=== PATIENT | female | born 1940 | race Asian ===

== ENCOUNTER → 2019-01-04 | Outpatient (CLI) | payer MEDICARE, OTHER ==
[~2019-01-04] MED LIST: ALEN70TA3 PO; CALC1TAB2 PO; IBAN150T15 PO
== END | disposition home or self-care (01) ==
LOC: CVU 08:36
PROVIDERS: ATTEND Nurse Practitioner Family
DX: E04.2 Nontoxic multinodular goiter (principal); I35.8 Other nonrheumatic aortic valve disorders; I37.1 Nonrheumatic pulmonary valve insufficiency
CPT/HCPCS: 0399T; 76536; 93306

== ENCOUNTER 2019-03-12 10:25 | Inpatient (IN) | payer MEDICARE, OTHER ==
[~2019-03-12] VITALS: Ht 162.6 cm; Wt 52.6 kg
[2019-03-12] MEDS ORDERED: NITROGLYCERIN SINGLE TAB 0.4 MG SL ONE ×2 (10:58→11:21)
[2019-03-12] MEDS ORDERED: ASPIRIN 81 MG TABLET CHEW ONE (10:59)
[2019-03-12] MEDS ORDERED: ASPIRIN 81 MG TABLET CHEW PO ONE (11:00)
[2019-03-12] MEDS ORDERED: SODIUM CHLORIDE FLUSH 10ML SYR IVF ONE (11:00)
[2019-03-12] MEDS: NITROGLYCERIN SINGLE TAB 0.4 MG SL PRN ×2 (11:03→11:27)
[2019-03-12] MEDS ORDERED: ATOR40TA78 PO (11:09)
[2019-03-12] MEDS ORDERED: POTA10TA57 PO (11:09)
[2019-03-12 11:23] LABS: BASOPHILS # (AUTO) 0.05 x10^3/uL (0-0.1); BASOPHILS % (AUTO) 1 % (0-1); EOSINOPHILS % (AUTO) 1 % (1-7); LYMPHOCYTES # (AUTO) 2.57 x10^3/uL (1-3.4); LYMPHOCYTES % (AUTO) 36 % (22-44); MD NO; MEAN CORPUSCULAR HEMOGLOBIN 34.8 pg (27.0-34.8); MEAN CORPUSCULAR HGB CONC 33.6 g/dL (32.4-35.8); MEAN CORPUSCULAR VOLUME 103.4 fL (80-100); MEAN PLATELET VOLUME 7.9 fL (7.4-10.4); MONOCYTES # (AUTO) 0.46 x10^3/uL (0.2-0.8); MONOCYTES % (AUTO) 6 % (2-9); NEUTROPHILS # (AUTO) 4.01 x10^3/uL (1.8-6.8); NEUTROPHILS % (AUTO) 56 % (42-75); PLATELET COUNT 267 x10^3/uL (130-400); RED CELL DISTRIBUTION WIDTH 16.2 % (9.6-15.2)
[2019-03-12 11:34] LABS: ALANINE AMINOTRANSFERASE 49 U/L (12-78); ANION GAP 5 mmol/L (5-15); CALCIUM 8.8 mg/dL (8.5-10.1); CHLORIDE 109 mmol/L (98-107); CREATININE 0.76 mg/dL (0.55-1.02)
[2019-03-12 11:38] LABS: D-DIMER 0.37 ug/mlFEU (0.00-0.52); INTERNATIONAL NORMALIZED RATIO 0.94 (0.93-1.1); PROTHROMBIN TIME 9.9 Seconds (9.6-11.5)
[2019-03-12 11:39] LABS: ALKALINE PHOSPHATASE 90 U/L (45-117); BILIRUBIN,TOTAL 0.6 mg/dL (0.2-1.0); TOTAL PROTEIN 8.1 g/dL (6.4-8.2); TROPONIN I < 0.015 ng/mL (0.000-0.045)
--- NOTE | 2019-03-12 11:40 | NUR ---
PT NOW 0/10 PAIN AFTER NITRO X 2
[2019-03-12 13:00] VITALS: BP 148/86
[2019-03-12 13:15] VITALS: BP 146/86
[2019-03-12] MEDS ORDERED: ONDANSETRON 2MG/ML, 2ML IVPush PRN (15:30)
[2019-03-12] MEDS ORDERED: ACETAMINOPHEN 325 MG TABLET PO PRN (15:30)
[2019-03-12] MEDS ORDERED: KETOROLAC 30 MG/1 ML IV PRN (15:30)
[2019-03-12] MEDS ORDERED: ENOXAPARIN 40 MG/0.4 ML SQ SCH (15:30)
[2019-03-12] MEDS ORDERED: hydrALAzine 20 MG/ML, 1ML IVPush PRN (15:30)
[2019-03-12] MEDS ORDERED: ONDANSETRON ODT 4 MG PO PRN (15:30)
[2019-03-12] MEDS ORDERED: IBUPROFEN 600 MG TABLET PO PRN (15:30)
[2019-03-12 16:55] LABS: TROPONIN I < 0.015 ng/mL (0.000-0.045)
[2019-03-12 17:00] LABS: THYROID STIMULATING HORMONE 0.949 mIU/L (0.358-3.740)
[2019-03-12 18:45] VITALS: BP 152/80
[2019-03-12] MEDS ORDERED: ATORVASTATIN 40 MG TABLET PO SCH (21:00)
[2019-03-13 00:17] LABS: TROPONIN I < 0.015 ng/mL (0.000-0.045)
[2019-03-13 01:40] VITALS: BP 158/74
[2019-03-13 05:18] LABS: ALANINE AMINOTRANSFERASE 42 U/L (12-78); ALBUMIN 3.4 g/dL (3.4-5.0); ANION GAP 7 mmol/L (5-15); CALCIUM 8.1 mg/dL (8.5-10.1); CHLORIDE 112 mmol/L (98-107); CHOLESTEROL, TOTAL 171 mg/dL (140-239); CREATININE 0.81 mg/dL (0.55-1.02)
[2019-03-13 05:21] LABS: ALKALINE PHOSPHATASE 76 U/L (45-117); BILIRUBIN,TOTAL 0.6 mg/dL (0.2-1.0); HDL CHOLESTEROL (DIRECT) 74 mg/dL (40-60); TOTAL PROTEIN 6.9 g/dL (6.4-8.2); TRIGLYCERIDES 96 mg/dL (50-200); VLDL CHOLESTEROL 19 mg/dL (0-25)
[2019-03-13 05:25] LABS: BASOPHILS # (AUTO) 0.05 x10^3/uL (0-0.1); BASOPHILS % (AUTO) 1 % (0-1); EOSINOPHILS # (AUTO) 0.23 x10^3/uL (0-0.4); EOSINOPHILS % (AUTO) 4 % (1-7); LYMPHOCYTES % (AUTO) 45 % (22-44); MD NO; MEAN CORPUSCULAR HEMOGLOBIN 35.2 pg (27.0-34.8); MEAN CORPUSCULAR HGB CONC 34.3 g/dL (32.4-35.8); MEAN CORPUSCULAR VOLUME 102.6 fL (80-100); MONOCYTES # (AUTO) 0.45 x10^3/uL (0.2-0.8); MONOCYTES % (AUTO) 8 % (2-9); NEUTROPHILS # (AUTO) 2.25 x10^3/uL (1.8-6.8); NEUTROPHILS % (AUTO) 42 % (42-75); PLATELET COUNT 240 x10^3/uL (130-400); RED BLOOD COUNT 3.56 x10^6/uL (3.82-5.3); RED CELL DISTRIBUTION WIDTH 16.4 % (9.6-15.2)
[2019-03-13 05:30] LABS: CHOL/HDL RATIO 2.3; HDL CHOL % 43 % (28-40); LDL CHOLESTEROL,CALCULATED 78 mg/dL (54-169); LDL/HDL RATIO 1.1 (0.5-3.0)
[2019-03-13] MEDS ORDERED: ASPIRIN 325 MG TABLET EC PO SCH (06:00)
[2019-03-13 06:42] VITALS: BP 148/81
[2019-03-13] MEDS ORDERED: POTASSIUM CHLORIDE 20 MEQ TAB.ER.PRT PO SCH (08:00)
[2019-03-13 13:08] VITALS: BP 148/87
== END 2019-03-13 17:15 | disposition home or self-care (01) | DRG 313 ==
LOC: ED 12:03 → EDIP 12:04 → ED 12:17 → 5SO 12:39 → DCLOUNGE 03-13 17:02
PROVIDERS: ADMIT Internal Medicine; ATTEND Internal Medicine
DX: R07.89 Other chest pain (principal); E03.9 Hypothyroidism, unspecified; E78.5 Hyperlipidemia, unspecified; I08.1 Rheumatic disorders of both mitral and tricuspid valves; E87.6 Hypokalemia; F41.9 Anxiety disorder, unspecified; I10 Essential (primary) hypertension; M81.0 Age-related osteoporosis without current pathological fracture; Z88.2 Allergy status to sulfonamides; Z88.8 Allergy status to other drugs, medicaments and biological substances
CPT/HCPCS: 36415; 78452; 80053; 80061; 84443; 84484; 85025; 85379; 85610; 85730; 93005; 93017; 99285; G0378; J1650; A9502; C9898

== ENCOUNTER 2019-05-13 10:30 | Outpatient (CLI) | payer MEDICARE, OTHER | END 2019-05-13 23:59 | disposition home or self-care (01) | LOC: CVU 10:30 | PROVIDERS: ATTEND Internal Medicine Cardiovascular Disease | DX: I65.23 Occlusion and stenosis of bilateral carotid arteries (principal) | CPT/HCPCS: 93880 ==

== ENCOUNTER → 2019-05-20 | Outpatient (CLI) | payer MEDICARE, OTHER ==
[~2019-05-20] MED LIST changes: +ATOR40TA78 PO; +POTA10TA57 PO
[2019-05-20 13:00] LABS: ANION GAP 5 mmol/L (5-15); CALCIUM 9.1 mg/dL (8.5-10.1); CHLORIDE 109 mmol/L (98-107)
[2019-05-20 13:01] LABS: CREATININE 0.86 mg/dL (0.55-1.02)
== END | disposition home or self-care (01) ==
LOC: CFH 10:16
PROVIDERS: ATTEND Internal Medicine Cardiovascular Disease
DX: E87.6 Hypokalemia (principal); R00.2 Palpitations
CPT/HCPCS: 36415; 80048

== ENCOUNTER → 2020-03-11 | Outpatient (CLI) | payer MEDICARE, OTHER ==
[~2020-03-11] MED LIST changes: +GADOTERATE 7.5 MMOL/15 ML SYR ONE
[2020-03-11 15:42] LABS: ALBUMIN 4.3 g/dL (3.4-5.0); ANION GAP 4 mmol/L (5-15); CALCIUM 8.9 mg/dL (8.5-10.1); CHLORIDE 109 mmol/L (98-107)
[2020-03-11 15:46] LABS: ALANINE AMINOTRANSFERASE 52 U/L (12-78); ALKALINE PHOSPHATASE 68 U/L (45-117); BILIRUBIN,TOTAL 0.8 mg/dL (0.2-1.0); C-REACTIVE PROTEIN, QUANT 0.11 mg/dL (0.02-0.49); CREATININE 0.83 mg/dL (0.55-1.02); TOTAL PROTEIN 8.2 g/dL (6.4-8.2)
[2020-03-11 15:55] LABS: MEAN PLATELET VOLUME 8.2 fL (7.4-10.4); PLATELET COUNT 222 x10^3/uL (130-400); RED BLOOD COUNT 3.82 x10^6/uL (3.82-5.3); RED CELL DISTRIBUTION WIDTH 16.5 % (9.6-15.2)
[2020-03-11 16:27] LABS: HCT (SEDRATE) 39.3 % (34.6-47.8)
[2020-03-11 16:47] LABS: BASOPHILS # (AUTO) 0.05 x10^3/uL (0-0.1); BASOPHILS % (AUTO) 1 % (0-1); EOSINOPHILS # (AUTO) 0.18 x10^3/uL (0-0.4); EOSINOPHILS % (AUTO) 3 % (1-7); LYMPHOCYTES # (AUTO) 3.03 x10^3/uL (1-3.4); LYMPHOCYTES % (AUTO) 44 % (22-44); MD SCAN; MONOCYTES # (AUTO) 0.56 x10^3/uL (0.2-0.8); MONOCYTES % (AUTO) 8 % (2-9); NEUTROPHILS # (AUTO) 3.05 x10^3/uL (1.8-6.8); NEUTROPHILS % (AUTO) 44 % (42-75)
== END | disposition home or self-care (01) ==
LOC: RAD 13:39
PROVIDERS: ATTEND Nurse Practitioner Family
DX: G31.9 Degenerative disease of nervous system, unspecified (principal); I67.82 Cerebral ischemia; G44.85 Primary stabbing headache; R42 Dizziness and giddiness
CPT/HCPCS: 36415; 70553; 80053; 85025; 85651; 86140; A9575

== ENCOUNTER → 2020-10-03 | Outpatient (CLI) | payer MEDICARE, OTHER ==
[~2020-10-03] MED LIST changes: -GADOTERATE 7.5 MMOL/15 ML SYR ONE
[2020-10-03 09:11] LABS: BASOPHILS % (AUTO) 1 % (0-1); EOSINOPHILS % (AUTO) 2 % (1-7); LYMPHOCYTES % (AUTO) 30 % (22-44); MEAN CORPUSCULAR HGB CONC 34.9 g/dL (32.4-35.8); MEAN PLATELET VOLUME 7.7 fL (7.4-10.4); MONOCYTES % (AUTO) 6 % (2-9); NEUTROPHILS % (AUTO) 61 % (42-75); PLATELET COUNT 222 x10^3/uL (130-400); RED BLOOD COUNT 3.75 x10^6/uL (3.82-5.3); RED CELL DISTRIBUTION WIDTH 16.2 % (9.6-15.2)
[2020-10-03 09:12] LABS: MD NO
[2020-10-03 09:24] LABS: ALBUMIN 4.1 g/dL (3.4-5.0); ANION GAP 7 mmol/L (5-15); CALCIUM 8.9 mg/dL (8.5-10.1); CHLORIDE 107 mmol/L (98-107)
[2020-10-03 09:33] LABS: ALANINE AMINOTRANSFERASE 32 U/L (12-78); ALKALINE PHOSPHATASE 66 U/L (45-117); BILIRUBIN,TOTAL 0.9 mg/dL (0.2-1.0); CHOLESTEROL, TOTAL 186 mg/dL (140-239); CREATININE 0.84 mg/dL (0.55-1.02); FREE T4 (FREE THYROXINE) 1.07 ng/dL (0.76-1.46); HDL CHOL % 51 % (28-40); HDL CHOLESTEROL (DIRECT) 95 mg/dL (40-60); LDL CHOLESTEROL,CALCULATED 73 mg/dL (54-169); LDL/HDL RATIO 0.8 (0.5-3.0); TOTAL PROTEIN 8.1 g/dL (6.4-8.2); TRIGLYCERIDES 89 mg/dL (50-200); VLDL CHOLESTEROL 18 mg/dL (0-25)
== END | disposition home or self-care (01) ==
LOC: LAB 08:44
PROVIDERS: ATTEND Nurse Practitioner Family
DX: E04.2 Nontoxic multinodular goiter (principal); E78.5 Hyperlipidemia, unspecified; E87.6 Hypokalemia; I36.1 Nonrheumatic tricuspid (valve) insufficiency; M81.0 Age-related osteoporosis without current pathological fracture; R07.9 Chest pain, unspecified
CPT/HCPCS: 36415; 80053; 80061; 84439; 84443; 85025

== ENCOUNTER 2021-02-15 13:42 | Outpatient (CLI) | payer MEDICARE, OTHER | END 2021-02-15 23:59 | disposition home or self-care (01) | LOC: CVU 13:42 | PROVIDERS: ATTEND Internal Medicine Cardiovascular Disease | DX: I08.8 Other rheumatic multiple valve diseases (principal); I10 Essential (primary) hypertension | CPT/HCPCS: 93306 ==